=== PATIENT | female | born 1990 | race Caucasian/White ===

== ENCOUNTER 2022-03-25 09:31 | Emergency (ER) | payer MEDICAID ==
[~2022-03-25] VITALS: Ht 160 cm; Wt 116.8 kg
[2022-03-25] MEDS ORDERED: HYDROcodone/acetaminophen 10/325mg tab PO STA (09:39)
[2022-03-25] MEDS ORDERED: ketorolac trometh. 30mg/ml inj. IV ONE (12:25)
[2022-03-25] MEDS ORDERED: propofol 10mg/ml 20ml vial IV ONE (12:25)
[2022-03-25] MEDS ORDERED: ondansetron/PF 4mg/2ml inj IV ONE (12:25)
[2022-03-25] MEDS ORDERED: morphine 4 MG/ML inj SYRINge IV ONE (14:20)
[2022-03-25] MEDS ORDERED: HYDR-3965 PO (14:21)
[2022-03-25 15:32] VITALS: BP 130/51
== END 2022-03-25 15:47 | disposition home or self-care (01) ==
LOC: ER 09:32
DX: S82.51XA Displaced fracture of medial malleolus of right tibia, initial encounter for closed fracture (principal); M25.571 Pain in right ankle and joints of right foot; Z88.1 Allergy status to other antibiotic agents; W19.XXXA Unspecified fall, initial encounter; Y93.89 Activity, other specified; Y92.89 Other specified places as the place of occurrence of the external cause; Y99.8 Other external cause status
CPT/HCPCS: 27810; 73600; 73610; 96374; 96375; 99152; 99285; J1885; J2270; J2405; J2704; J7030; A4620

== ENCOUNTER 2025-03-20 11:39 | Emergency (ER) | payer MEDICAID ==
[~2025-03-20] VITALS: Ht 160 cm; Wt 100.0 kg
[2025-03-20 11:43] VITALS: TEMP 98
--- NOTE | 2025-03-20 12:17 | RADIOLOGY REPORT ---
PROCEDURE: Right ankle radiographs. INDICATION: ANKLE PAIN TECHNIQUE: 3 views of the right ankle were obtained. COMPARISON: 03/05/2022. FINDINGS: There is no evidence of fracture or dislocation. Open reduction internal fixation of the distal fibula with plate and several screws. Open reduction internal fixation of the medial malleolus with screws and syndesmotic tension device noted. Old posterior malleolus fracture. Soft tissues are unremarkable. IMPRESSION: 1. No fracture or dislocation. 2. ORIF of the distal fibula and medial malleolus.
--- NOTE | 2025-03-20 13:05 | Physician Documentation ---
History of Present Illness ~ Chief Complaint: Ankle pain Stated Complaint: R ANKLE PAIN Time Seen by MD: 12:58 Primary Medical Doctor: [facility] HPI This is a 34-year-old female with a history of OIRF to right ankle who presents with right ankle pain after rolling her ankle today. Patient reports OIRF was two years prior. No other acute symptoms or concerns. Tetanus witin 5 years: No Medication Reconciliation Allergies: Coded Allergies: doxycycline (Unverified Allergy, Unknown, rash, 03/20/25) Scheduled Ibuprofen (Ibuprofen), 1 TAB PO Q8H Past Medical History Past Medical History: *RENAL/* Past Surgical History: no surgical history, orthopedic surgeries Alcohol Use: None Drug Use: none Lives with: Spouse Lives In: Home Review of Systems ROS As stated above in the HPI, otherwise all systems are reviewed and negative. Physical Exam Vital Signs: Temperature: 98.0, Source: Temporal, Heart Rate: 85, Respiratory Rate: 18, BP: 122/76, Pulse Oximetry: 99, Weight: 100.000 Physical Exam VITALS: Reviewed and as above. GENERAL: Alert, nontoxic appearing, no apparent distress. RESPIRATORY: No increased work of breathing, no respiratory distress, speaking in full clear sentences CV: Pedal pulse intact to right foot MUSCULOSKELETAL: Swelling to right ankle without obvious deformity, tenderness to lateral and medial ankle, no ecchymosis, no erythema NEURO: Sensation intact to right foot Progress Results/Orders Results/Orders Orders - LANRE YUN Ortho Orders (03/20/25 ) Completed Orders - LANRE YUN Ibuprofen Tablet (Motrin Tablet) (03/20/25 13:00) Medications Received in ER Medications (Trade) Dose Ordered Sig/[facility] Route PRN Reason Start Time Stop Time Status Last Admin Dose Admin (Motrin tablet) 800 mg ONCE ONCE PO 03/20/25 13:00 03/20/25 13:01 DC 03/20/25 13:17 800 MG Vital Signs 03/20/25 03/20/25 11:43 13:25 Temp 98.0 Pulse 85 87 Resp 18 16 B/P (MAP) 122/76 120/70 Pulse Ox 99 100 EKG/XRAY/CT/US/VASC/MRI Bone/Soft Tissue X-Ray (Ext.) : Additional Comment Exam: ANKLE, COMPLETE(3VW MIN) PROCEDURE: Right ankle radiographs. INDICATION: ANKLE PAIN TECHNIQUE: 3 views of the right ankle were obtained. COMPARISON: 03/05/2022. FINDINGS: There is no evidence of fracture or dislocation. Open reduction internal fixation of the distal fibula with plate and several screws. Open reduction internal fixation of the medial malleolus with screws and syndesmotic tension device noted. Old posterior malleolus fracture. Soft tissues are unremarkable. IMPRESSION: 1. No fracture or dislocation. 2. ORIF of the distal fibula and medial malleolus. Electronically Signed by:NATALYA LAMB MD Date & Time: 03/20/25 1214 Dictated by: NATALYA LAMB MD Dictation date and time: 03/20/25 1157 I have reviewed and agree with the radiology report. I have reviewed and interpreted the imaging as: No acute fracture or dislocation Medical Decision Making Additional information obtaine: N/A Findings This 34-year-old female presented with pain and swelling to right ankle after rolling it today, patient has history of OIRF to the area, it is reassuring the foot is neurovascularly intact. Imaging demonstrated no evidence of acute fracture or dislocation, physical exam and imaging consistent with soft tissue injury. Patient is otherwise well-appearing and appropriate for outpatient follow up. Patient placed on crutches and we will be treated with rest, ice, compression, and elevation. Patient is to follow up with her primary care provider in three days and follow up with her orthopedist/lens polisher. Patient provided home care instructions return to care instructions, and follow up instructions which she verbalized understanding of. General Diff Dx:Considerations: Include: Abrasion, Contusion, Fracture, Hematoma, Laceration, Neurovascular injury, Sprain, Ulcer Knee Diff Dx:Considerations: Unlikely: Abrasion, Arthritis, Contusion, DJD, Fracture-femur, Fracture-fibula, Fracture-patella, Fracture-tibia, Gout, Hematoma, Laceration, Meniscus injury, Neurovascular injury, Open fracture, Rheumatoid arthritis, Septic, Sprain, Sprain-MCL, Sprain-LCL, Sprain-ACL, Sprain-PCL, Other Ankle Diff Dx:Considerations: Include: Open fracture, Rheumatoid arthritis, Sprain, Septic, Ulcer Foot Diff Dx:Considerations: Include: Abrasion, Laceration, Neurovascular injury, Sprain Toe Diff Dx:Considerations: Unlikely: Abrasion, Cellulitis, Contusion, Dislocation, Felon, Fracture, Hematoma, Laceration, Neurovascular injury, Open fracture, Paronychia, Subungual hematoma, Other Departure Time of Disposition: 13:04 Disposition: 01 HOME / SELF CARE / HOMELESS Impression: Primary Impression: Ankle pain, right Qualified Codes: M25.571 - Pain in right ankle and joints of right foot Condition: Improved Discharge Instructions: Ankle Pain, RICE Therapy for Routine Care of Injuries Additional Instructions: Please use provided crutches to rest your ankle. Please use the prescribed ibuprofen as needed for pain, take this medication with food to avoid stomach upset. Follow up with your primary care provider as scheduled and contacting your orthopedist/lens polisher for follow up. Please follow up with your primary care provider in the next few days. Please return to the emergency department for any new or worsening concerning symptoms. Referrals: NO PRIMARY CARE PROVIDER (PCP) Prescriptions Ibuprofen (Ibuprofen) 800 Mg Tablet 1 TAB PO Q8H for pain for 10 Days, #30 TAB 0 Refills Prov: LANRE YUN 03/20/25 Education Educated: Patient, Family Educated regarding: diagnosis, treatment, prognosis, need for follow up Signature Scribe Signature: No scribe Attestation: The note accurately reflects work and decisions made by me.MARK ANTHONY Ponce 03/20/25 20:54 LANRE YUN Mar 20, 2025 13:05
[2025-03-20] MEDS ORDERED: IBUP-1986 PO (13:06)
[2025-03-20] MEDS: ibuprofen tablet 400 MG TABLET PO ONE (13:17)
[2025-03-20 13:25] VITALS: BP 120/70; PULSE 87; RESP 16; O2SAT 100
== END 2025-03-20 13:28 | disposition home or self-care (01) ==
LOC: ER 11:39
DX: M25.571 Pain in right ankle and joints of right foot (principal); Z88.1 Allergy status to other antibiotic agents; Z79.899 Other long term (current) drug therapy; Z98.890 Other specified postprocedural states; X50.1XXA Overexertion from prolonged static or awkward postures, initial encounter; Y93.89 Activity, other specified; Y92.89 Other specified places as the place of occurrence of the external cause; Y99.8 Other external cause status
CPT/HCPCS: 73610; 99284